=== PATIENT | female | born 1970 | race Caucasian/White ===

== ENCOUNTER 2024-07-03 17:26 | Emergency (ER) | payer OTHER, SELFPAY ==
[2024-07-03 17:27] VITALS: BP 152/105
[2024-07-03 18:21] LABS: Urine Albumin Trace (Neg - Trace); Urine Bilirubin Negative (Negative); Urine Character Clear (Clear); Urine Color Yellow; Urine Glucose Negative (Negative); Urine Ketone 1+ (Negative); Urine Leukocyte Negative (Negative); Urine Nitrite Negative (Negative); Urine Occult Blood Negative (Negative); Urine Specific Gravity 1.005 (<1.030); Urine Urobilinogen Negative (Neg - 1+)
[2024-07-03 19:39] VITALS: BP 142/96
--- NOTE | 2024-07-03 19:40 | ED.GENMED ---
History of Present Illness
General
Chief Complaint: Urinary Symptoms
Source: patient
Time Seen by Provider: 07/03/24 19:03
History of Present Illness
History of Present Illness:
54-year-old female presents to the emergency room complaining of right flank pain, nausea, or suprapubic pain which has been present to some extent for the past couple weeks. Pain became more severe over the past couple days. Patient states she
feels like she gets urinary tract infections fairly frequently. She was prescribed Cipro yesterday by her primary care provider. She went for a CT of the abdomen and pelvis today at [facility]. The report states the patient has
moderate right-sided hydroureteronephrosis with marked circumferential thickening of the ureteral wall and stranding and edema around the ureter. There are similar but less significant changes on the left. Patient's primary care doctor told her to
come to the emergency room because she needs IV antibiotics. Patient denies rigors. She has nausea but has not vomited. She does feel less energy than normal.
Phy Exam
Physical Exam
Physical Exam:
General: Awake, Alert, Oriented X3. No acute distress.
Vitals: Afebrile
Head: Atraumatic
Eyes: Pupils equal, EOMI
Throat: Airway intact, no exudates
Neck: Trachea midline
Lungs: Clear and equal b/l
Heart: Regular rate, no murmurs
Abd: Soft, suprapubic tenderness to palpation,, No pulsatile mass
Back: Right CVA tenderness to percussion
Neuro: Nonfocal
Skin: Warm, dry, no rash
Extremities: pulses equal b/l, no edema
Course
Orders/Labs/Results
Orders:
Orders
07/03/24 17:35
Urinalysis Reflex To Culture Urgent
Date Specimen was Collected: 07/03/24
Time Specimen was Collected: 17:33
Urine Culture Urgent
YUNG Source: U
Specimen Description:
Date Specimen was Collected: 07/03/24
Time Specimen was Collected: 17:33
Comment: ADD ON
07/03/24 19:24
Acetaminophen [Tylenol] 1,000 mg PO NOW STA
07/03/24 19:38
Ondansetron Injectable [Zofran] 4 mg .ROUTE .STK-MED ONE
07/03/24 19:46
Basic Metabolic Panel Urgent
Complete Blood Count/With Diff Urgent
Ondansetron Injectable [Zofran] 4 mg IV NOW STA
07/03/24 20:27
Add On - Microbiology Urgent
Tests Added?: urine culture
07/03/24 21:30
Ciprofloxacin 400 mg/[id number] [Cipro 400 mg] 200 ml IV NOW
07/03/24 21:38
Ciprofloxacin 400 mg/[id number] [Cipro 400 mg] 200 ml IV NOW
Abnormal Lab Results
07/03/24 07/03/24
17:35 19:46
MCH 31.3 H pg
(27.0-31.0)
Absolute Monos (auto) 0.8 H 10^3/uL
(0.1-0.6)
Lymphocytes % 16.7 L %
(20.5-51.1)
Chloride 97 L mmol/L
(98-107)
Glucose 106 H mg/dl
(70-99)
Calcium 10.7 H mg/dl
(8.4-10.2)
Urine Ketones 1+ A
(Negative)
07/03/24 19:46
07/03/24 19:46
Vital Signs
Initial and Last Documented VS:
Initial Vital Signs
Temp Pulse Resp BP Pulse Ox
99.1 F 91 18 152/105 99
07/03/24 17:27 07/03/24 17:27 07/03/24 17:27 07/03/24 17:27 07/03/24 17:27
Last Documented Vital Signs
Temp Pulse Resp BP Pulse Ox
98.4 F 96 18 125/96 98
07/03/24 22:49 07/03/24 22:49 07/03/24 17:27 07/03/24 22:49 07/03/24 22:49
MDM/Problems Addressed
Differential Diagnosis Includes:
uti, pyelo,
MDM/Problems Addressed:
Patient presents with urinary symptoms as well as a CT scan which showed inflammation of the ureters. Patient looks quite well. Vital signs are normal. Her urinalysis does not show any convincing signs of a urinary tract infection however the
patient has been taking Cipro. She is taken 3 doses. Suspect the urine reflects partially treated urinary tract infection. Given the patient is tolerating oral intake, has normal vital signs, normal labs hide and not sure she would benefit from
hospitalization. Recommend she continue the Cipro. If she feels no better after another 24 hours of Cipro she has been provided a prescription for Bactrim and she should switch antibiotics. Follow-up with urology as an outpatient.
Chronic conditions affecting care: HTN
*Radiology
Radiology exam reviewed: other (Radiology report provided by the patient reviewed. This is scanned into the medical record.)
*Pulse Oximetry
Patient hypoxic: no
*Critical Care Note
Total Time (30-74mins, 75-104mins- exclusive of procedures): Not Applicable
ED Attending Note
-
Portions of this chart may have been created with voice recognition software.� Occasional wrong word or��sound alike� substitutions may have occurred due to the inherent limitations of voice recognition software.
Discharge Plan
Departure
Patient Disposition: Home (Routine Discharge)
Date of Disposition: 07/03/24
Time of Disposition: 21:31
Patient with high blood pressure during this ER visit?: No
Condition: Good
Discharge Problem:
Urinary tract infection
Prescriptions:
New
sulfamethoxazole-trimethoprim [Bactrim DS] 800-160 mg tablet
1 tab PO Q12H Qty: 14 0RF
Referrals:
Codi Rodriguez MD [Family Provider] -
Interventions
Interventions:
*Risk Screen - Suicide Last Done: 07/03/24 19:48
*General Assessment Last Done: 07/03/24 19:48
*Neglect/Abuse Screening Last Done: 07/03/24 19:48
ED- Fall Risk Assessment Last Done: 07/03/24 23:16
*ED COVID-19 Vaccine History Last Done: 07/03/24 19:48
*Nursing Disposition Last Done: 07/03/24 23:16
ED-Female Genitourinary Assessment Last Done: 07/03/24 19:51
Discharge Date and Time
Discharge Date/Time: 07/03/24 23:16
Print Language: [place]
[2024-07-03] MEDS: TYLENOL 1000 MG PO (19:44)
[2024-07-03] MEDS: ZOFRAN 4 MG IV (19:47)
[2024-07-03 19:48] VITALS: BMI 23.6
[2024-07-03 19:56] LABS: % Basophils 0.4 % (0-2); % Eosinophils 0.7 % (0-6); % Immature Granulocytes 0.2 % (0-0.5); % Lymphocytes 16.7 % (20.5-51.1); % Monocytes 9.3 % (1.7-9.3); % Neutrophils 72.7 % (42.2-75.2); Absolute Eosinophils 0.1 10^3/uL (0-0.7); Absolute Lymphocytes 1.5 10^3/uL (1.2-3.4); Absolute Monocytes 0.8 10^3/uL (0.1-0.6); Absolute Neutrophils 6.5 10^3/uL (1.4-6.5); Hematocrit 40.2 % (37.0-47.0); Hemoglobin 14.2 g/dL (12.0-16.0); Mean Corp Hgb Conc. 35.3 g/dL (33.0-37.0); Mean Corpuscular Hgb 31.3 pg (27.0-31.0); Mean Corpuscular Volume 88.5 fL (81.0-99.0); Mean Platelet Volume 9.1 fL (7.4-10.4); Nucleated Red Blood Cells % 0 %; Platelet Count 343 10^3/uL (130-400); Red Blood Cell Count 4.54 10^6/uL (4.20-5.40); Red Cell Dist. Width 11.6 % (11.5-14.5); White Blood Cell Count 8.9 10^3/uL (4.8-10.8)
[2024-07-03 20:16] LABS: Blood Urea Nitrogen 11 mg/dl (7-17); Calcium 10.7 mg/dl (8.4-10.2); Carbon Dioxide 27 mmol/L (22-30); Estimated Creatinine Clearance 91 ml/min; Glucose 106 mg/dl (70-99); eGFR > 60.00
[2024-07-03 20:28] LABS: Chloride 97 mmol/L (98-107); Potassium 4.5 mmol/L (3.5-5.1); Sodium 137 mmol/L (135-145)
[2024-07-03] MEDS: CIPRO 400 MG 200 IV (22:01)
[2024-07-03 22:49] VITALS: BP 125/96
== END 2024-07-03 23:16 | disposition home or self-care (01) ==
LOC: EMR 17:26
PROVIDERS: Emergency Medicine; EMERGENCY PHYSICIAN Emergency Medicine; FAMILY PHYSICIAN Internal Medicine
DX: N39.0 Urinary tract infection, site not specified (principal); I10 Essential (primary) hypertension
CPT/HCPCS: 99284; 96374; 96375; 80048; 81003; 85025; 87086